=== PATIENT | female | born 1980 | race Caucasian/White ===

== ENCOUNTER 2018-01-25 08:40 | Emergency (ER) | payer OTHER ==
[~2018-01-25] VITALS: Ht 172.7 cm; Wt 109.1 kg
[~2018-01-25 08:40] MED LIST: CARB200T6 PO; DIVA500T35 PO; IBUP-676 PO; MIRT30 PO; OS500 PO; PALI6 PO; TOPI25 PO; TRIH5TAB2 PO
[2018-01-25] MEDS ORDERED: SIMV-260 PO (09:36)
[2018-01-25] MEDS ORDERED: SULF1TAB42 PO (09:36)
[2018-01-25] MEDS ORDERED: TOPI25 PO (09:36)
[2018-01-25] MEDS ORDERED: PALI6 PO (09:36)
[2018-01-25] MEDS ORDERED: SPIR25 PO (09:36)
[2018-01-25] MEDS ORDERED: DIATRIZOATE MEGLU/SOD 660/100 MG/ML 120 ML BOTTLE ONE (11:19)
[2018-01-25] MEDS ORDERED: LIDOCAINE HCL/PF 1% 5 ML VIAL ONE (11:20)
[2018-01-25 12:30] VITALS: BP 108/74
== END 2018-01-25 13:22 | disposition home or self-care (01) ==
LOC: EMS 08:43
DX: K94.29 Other complications of gastrostomy (principal); Z43.1 Encounter for attention to gastrostomy
CPT/HCPCS: 36245; 49440; 76000; 99284; J3490; Q9963

== ENCOUNTER 2018-02-04 11:55 | Emergency (ER) | payer OTHER ==
[~2018-02-04] VITALS: Ht 167.6 cm; Wt 104.0 kg
[~2018-02-04 11:55] MED LIST changes: +SIMV-260 PO; +SPIR25 PO; +SULF1TAB42 PO
[2018-02-04 13:04] VITALS: BP 147/68
[2018-02-04] MEDS ORDERED: DIATRIZOATE MEGLU/SOD 660/100 MG/ML 120 ML BOTTLE ONE (14:14)
[2018-02-04] MEDS ORDERED: LIDOCAINE HCL/PF 1% 30 ML VIAL ONE (14:20)
== END 2018-02-04 15:22 | disposition home or self-care (01) ==
LOC: EMS 11:56
DX: Z43.4 Encounter for attention to other artificial openings of digestive tract (principal)
CPT/HCPCS: 36245; 49440; 76000; 99284; C1769 ×2; C1887; J3490; Q9963

== ENCOUNTER 2019-04-20 12:45 | Emergency (ER) | payer OTHER ==
[~2019-04-20] VITALS: Ht 172.7 cm; Wt 100.0 kg
[~2019-04-20 12:45] MED LIST changes: +DIVA-78 PO; -DIVA500T35 PO
[2019-04-20] MEDS ORDERED: DIATRIZOATE MEGLU/SOD 660/100 MG/ML 120 ML BOTTLE ONE (13:09)
[2019-04-20 14:15] VITALS: BP 115/82
== END 2019-04-20 14:36 | disposition home or self-care (01) ==
LOC: EMS 12:46
DX: K94.23 Gastrostomy malfunction (principal); Z79.899 Other long term (current) drug therapy
CPT/HCPCS: 49450; 76000; 99284; C1769; Q9963